=== PATIENT | male | born 1955 | race Caucasian/White ===

== ENCOUNTER 2018-06-28 09:47 | Outpatient (CLI) | payer OTHER, SELFPAY ==
[2018-06-28 10:56] LABS: BUN 26 mg/dL (7-18); CREATININE 0.94 mg/dL (0.70-1.30); Calcium 8.8 mg/dL (8.5-10.1); Chloride 105 mmol/L (98-107); Glucose 98 mg/dL (70-100); Potassium 3.8 mmol/L (3.5-5.1); Sodium 144 mmol/L (136-145)
== END 2018-06-28 10:07 ==
PROVIDERS: PCP Emergency Medicine; Visit Provider Emergency Medicine
DX: Z00.00 Encounter for general adult medical examination without abnormal findings (principal)
CPT/HCPCS: 36415; 80048

== ENCOUNTER 2019-12-22 13:14 | Outpatient (REF) | payer OTHER, SELFPAY ==
[2019-12-22 13:30] LABS: Anion Gap 9.6 mmol/L (3-11); BUN 22 mg/dL (7-18); CO2 27.4 mmol/L (21.0-32.0); CREATININE 1.02 mg/dL (0.70-1.30); Calcium 8.7 mg/dL (8.5-10.1); Chloride 105 mmol/L (98-107); Glucose 120 mg/dL (74-106); Potassium 3.5 mmol/L (3.5-5.1); Sodium 142 mmol/L (136-145)
[2019-12-25 09:54] LABS: PSA, Screening 5.1 ng/mL (0.0-4.5)
== END 2019-12-22 13:34 ==
LOC: LBN 13:14
PROVIDERS: PCP Emergency Medicine; Visit Provider Emergency Medicine
DX: I10 Essential (primary) hypertension (principal); Z12.5 Encounter for screening for malignant neoplasm of prostate
CPT/HCPCS: 80048; 84153

== ENCOUNTER → 2020-04-02 04:36 | Outpatient (CLI) | payer OTHER, SELFPAY ==
[2020-04-02 09:24] LABS: Hemoglobin A1C 5.3 % (<5.7)
== END ==
PROVIDERS: PCP Emergency Medicine; Visit Provider Emergency Medicine
DX: R73.09 Other abnormal glucose (principal); R97.20 Elevated prostate specific antigen [PSA]; R89.9 Unspecified abnormal finding in specimens from other organs, systems and tissues
CPT/HCPCS: 36415; 83036; 84153

== ENCOUNTER 2020-04-16 08:37 | Outpatient (CLI) | payer OTHER, SELFPAY ==
[2020-04-18 00:32] LABS: COVID-19 RT-PCR Result NEGATIVE (Negative)
== END 2020-04-16 08:57 ==
PROVIDERS: PCP Emergency Medicine; Visit Provider Emergency Medicine
DX: Z20.828 Contact with and (suspected) exposure to other viral communicable diseases (principal)
CPT/HCPCS: U0003

== ENCOUNTER 2021-01-16 18:29 | Outpatient (REF) | payer OTHER, SELFPAY ==
[2021-01-16 19:31] LABS: BUN 19 mg/dL (7-18); CREATININE 1.1 mg/dL (0.70-1.30); Calcium 8.8 mg/dL (8.5-10.1); Chloride 105 mmol/L (98-107); Glucose 94 mg/dL (74-106); Potassium 3.9 mmol/L (3.5-5.1); Sodium 141 mmol/L (136-145)
[2021-01-17 17:24] LABS: PSA, Diagnostic 5.1 ng/mL (0.0-4.5)
== END 2021-01-16 18:30 | disposition home or self-care (01) ==
LOC: LBN 18:29
PROVIDERS: PCP Emergency Medicine; Visit Provider Emergency Medicine
DX: I10 Essential (primary) hypertension (principal); R97.20 Elevated prostate specific antigen [PSA]
CPT/HCPCS: 80048; 84153

== ENCOUNTER 2021-05-16 01:50 | Outpatient (CLI) | payer OTHER, SELFPAY ==
[2021-05-16 17:55] LABS: PSA, Diagnostic 4.8 ng/mL (0.0-4.5)
== END 2021-05-16 01:51 | disposition home or self-care (01) ==
LOC: LBO 01:50
PROVIDERS: PCP Emergency Medicine; Visit Provider Emergency Medicine
DX: R97.20 Elevated prostate specific antigen [PSA] (principal)
CPT/HCPCS: 36415; 84153

== ENCOUNTER 2021-11-03 03:05 | Outpatient (CLI) | payer OTHER, SELFPAY ==
[2021-11-04 14:23] LABS: Free PSA/PSA Ratio 0.15 ratio
== END 2021-11-03 03:06 | disposition home or self-care (01) ==
LOC: LBO 03:05
PROVIDERS: PCP Family Medicine; Visit Provider Nurse Practitioner Gerontology
DX: R97.20 Elevated prostate specific antigen [PSA] (principal)
CPT/HCPCS: 36415; 84154

== ENCOUNTER 2022-05-11 02:47 | Outpatient (CLI) | payer OTHER, SELFPAY ==
[2022-05-11 08:35] LABS: Anion Gap 4.2 mmol/L (3-11); BUN 23 mg/dL (7-18); CO2 29.8 mmol/L (21.0-32.0); Calcium 8.4 mg/dL (8.5-10.1); Chloride 107 mmol/L (98-107); Estimated GFR 84.05 (mL/min/1.73m2); Glucose 122 mg/dL (74-106); Potassium 3.5 mmol/L (3.5-5.1); Sodium 141 mmol/L (136-145)
== END 2022-05-11 02:48 | disposition home or self-care (01) ==
PROVIDERS: PCP Family Medicine; Visit Provider Nurse Practitioner Gerontology
DX: I10 Essential (primary) hypertension (principal)
CPT/HCPCS: 36415; 80048

== ENCOUNTER 2022-05-18 11:36 | Outpatient (REF) | payer OTHER, SELFPAY ==
[2022-05-18 22:38] LABS: PSA, Screening 4.6 ng/mL (<=4.5)
== END 2022-05-18 11:37 | disposition home or self-care (01) ==
LOC: LBN 11:36
PROVIDERS: PCP Family Medicine; Visit Provider Nurse Practitioner Gerontology
DX: R97.20 Elevated prostate specific antigen [PSA] (principal)
CPT/HCPCS: 84153

== ENCOUNTER 2022-11-02 02:35 | Outpatient (CLI) | payer OTHER, SELFPAY ==
[2022-11-03 17:26] LABS: PSA, Screening 4.8 ng/mL (<=4.5)
== END 2022-11-02 02:36 | disposition home or self-care (01) ==
LOC: LBO 02:35
PROVIDERS: PCP Family Medicine; Visit Provider Nurse Practitioner Gerontology
DX: R97.20 Elevated prostate specific antigen [PSA] (principal); N40.0 Benign prostatic hyperplasia without lower urinary tract symptoms; Z12.5 Encounter for screening for malignant neoplasm of prostate
CPT/HCPCS: 36415; 84153

== ENCOUNTER 2023-08-26 05:21 | Outpatient (CLI) | payer OTHER, SELFPAY ==
[2023-08-26 15:59] LABS: Anion Gap 7.9 mmol/L (3-11); BUN 20 mg/dL (7-18); CO2 28.1 mmol/L (21.0-32.0); CREATININE 0.9 mg/dL (0.70-1.30); Calcium 8.4 mg/dL (8.5-10.1); Chloride 108 mmol/L (98-107); Estimated GFR 94.19 (mL/min/1.73m2); Glucose 104 mg/dL (74-106); Potassium 3.8 mmol/L (3.5-5.1); Sodium 144 mmol/L (136-145)
== END 2023-08-26 05:22 | disposition home or self-care (01) ==
LOC: LBO 05:22
PROVIDERS: PCP Family Medicine; Visit Provider Family Medicine
DX: I10 Essential (primary) hypertension (principal)
CPT/HCPCS: 36415; 80048

== ENCOUNTER 2024-02-09 10:01 | Outpatient (CLI) | payer OTHER, SELFPAY ==
[2024-02-09 12:40] LABS: Anion Gap 7.9 mmol/L (3-11); BUN 20 mg/dL (7-18); CO2 26.1 mmol/L (21.0-32.0); Calcium 8.9 mg/dL (8.5-10.1); Chloride 109 mmol/L (98-107); Estimated GFR 83.01 (mL/min/1.73m2); Glucose 104 mg/dL (74-106); Potassium 3.8 mmol/L (3.5-5.1); Sodium 143 mmol/L (136-145)
[2024-02-09 18:38] LABS: PSA, Screening 6.4 ng/mL (<=4.5)
[2024-02-09 19:28] LABS: Hepatitis C Ab w Rflx HCV PCR Negative (Negative)
== END 2024-02-09 10:02 | disposition home or self-care (01) ==
LOC: LOS 10:01
PROVIDERS: PCP Family Medicine; Visit Provider Family Medicine
DX: Z11.59 Encounter for screening for other viral diseases (principal); S60.459A Superficial foreign body of unspecified finger, initial encounter; Z12.5 Encounter for screening for malignant neoplasm of prostate; I10 Essential (primary) hypertension; Z23 Encounter for immunization; L72.3 Sebaceous cyst; F41.9 Anxiety disorder, unspecified; N40.0 Benign prostatic hyperplasia without lower urinary tract symptoms
CPT/HCPCS: 36415; 80048; 84153; 86803

== ENCOUNTER 2024-03-22 11:24 | Day surgery (SDC) | payer OTHER, SELFPAY ==
--- NOTE | 2024-03-22 11:43 | W.PM.DSUDISC ---
Date of service: 03/22/24 Discharge Plan Disposition Patient Disposition: Home Condition: Good Discharge Details Reason For Visit: LLF Foreign body excision Attending Provider: Rome Murillo Primary Care Provider: Chantel Carreon Home Meds and New Rx's Prescriptions: New acetaminophen 500 mg tablet 1,000 mg PO TID Qty: 90 0RF hydrocodone-acetaminophen 5-325 mg tablet 1 tab PO Q6H PRN (Reason: pain) Qty: 4 0RF ibuprofen 600 mg tablet 600 mg PO TID PRN (Reason: pain) Qty: 90 0RF Continued brimonidine 0.2 % drops 1 drp ophthalmic (eye) BID latanoprost 0.005 % drops 1 drp ophthalmic (eye) DAILY omeprazole 20 mg capsule,delayed release(DR/EC) 20 mg PO DAILY PRN (Reason: gerd) timolol maleate 0.5 % drops 1 drp ophthalmic (eye) BID brinzolamide [Azopt] 5 ML drops,suspension 1 drp Ophthalmic BID amlodipine 5 mg tablet 5 mg PO DAILY Qty: 90 3RF lisinopril 20 mg tablet 20 mg PO DAILY Qty: 90 3RF sildenafil [Viagra] 100 mg tablet 100 mg PO PRN MDD 100 mg Qty: 5 6RF Discharge Instructions Additional Instructions: Forgein Body Removal Discharge Instructions Activity: You may use the other fingers as tolerated but avoid trying to do too much too soon. You may resume light activities with the finger when the dressing is removed Dressing/Cast: You may take the dressing down in [address] a Band-Aid over the wound if desired. You may get the incision wet after 48 hours. Medications: - You should take Tylenol and Ibuprofen for baseline pain control. - You have Hydrocodone for breakthrough pain. - You may apply ice over the finger. Follow-up: 7-10 days Stand Alone Forms: Dolores Cleary ([facility]) Referrals: Rome Murillo MD [ [facility] STAFF PHYSICIAN] - 04/03/24 1:00 pm Activity:: Activity as Tolerated Remove Dressings/Wound Care:: 48 hours Shower/Bathe:: 48 hours Diet:: As Tolerated Discharge Orders Discharge Orders: Discharge Order (Routine); Ordered 03/22/24 Ordered By: Martín Chapin DS: Diagnosis Discharge Diagnosis (1) Foreign body of finger of left hand: Status: Acute
[2024-03-22 11:47] VITALS: BP 145/98; PULSE 80; RESP 16; TEMP 36.3; O2SAT 98
[2024-03-22] MEDS: Sodium Bicarbonate 50 MEQ/50 ML VIAL (12:36)
[2024-03-22] MEDS: Lidocaine 1% Pres-Free W/EPI 1/200,000 10 ML VIAL (12:36)
[2024-03-22 13:11] VITALS: BP 141/96; PULSE 76; RESP 16; TEMP 36.6; O2SAT 100
--- NOTE | 2024-03-22 15:04 | W.PM.OP ---
Operative Note Operative Note PRE-OP DIAGNOSIS: Subungual foreign body, left middle finger POST-OP DIAGNOSIS: same PROCEDURE: Excision of foreign body from left middle finger nailbed SURGEON: Rome Murillo ANESTHESIA TYPE: Local By Surgeon Refer to Anesthesia Record ESTIMATED BLOOD LOSS: 0 PATHOLOGY: none sent COMPLICATIONS: None Patient was transported to: same day Indications: Mic is a 68-year-old male who I saw in clinic for a painful mass about the left middle finger. 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 Findings: There was a solid cylindrical black object, approximately 4 mm in length which was identified within the sterile matrix of the left middle finger underlying the distal third of the nail. Procedure Description: Mic was greeted in the preoperative holding area. His identity was confirmed the correct site was identified and marked. The consent was reviewed the patient and signed. He was taken to the operating room, kept on the stretcher, with the left hand on an outstretched hand table. The mass was identified through the nail. The hand was then prepped with ChloraPrep. A timeout was performed for safe surgery. A local block of 0.2 Bupivacaine Was Then Administered around the Distal End of the Finger. Once This Provided Complete Anesthetic for the End of the Finger I Proceeded with Elevating the Nail Plate off of the Sterile Matrix. There Was Some Density to the Tissue but I Was Unable to Identify Any Loose Pieces at This Point. Therefore, I Utilized Scissor and Knife to Remove a Window of Nail in the Location of the Mass. With This Window Removed I Was Able to Palpate a Firm Edge Which Corresponded to This Black Dot Which Was Seen on the Skin and Could Be Seen Slightly Better with Traction Placed into Soft Tissues. This Was Dissected Gently with a Dental Pick and a Tenotomy Scissor so I Could Identify a Leading Edge. The Mass Was Then Removed with Fine Tweezers. This Was Embedded within the Sterile Matrix. It Was Removed in a Hole, Measuring Approximate 4 to 5 Mm in Length. There Was Saved the Patient. The Wound Was Then Irrigated. The Fingernail Was Dressed with Xeroform, 4 X 4, Conform Dressing. He Tolerated Procedure Well and Was Taken Back to the Day Surgery Area in Stable Condition. Date of Procedure: 03/22/24
== END 2024-03-22 13:41 | disposition home or self-care (01) ==
PROVIDERS: PCP Family Medicine; Visit Provider Student in an Organized Health Care Education/Training Program
PROC: (CPT 10121; principal; 2024-03-22 13:45)
DX: S60.453A Superficial foreign body of left middle finger, initial encounter (principal)
CPT/HCPCS: 10121; J2004

== ENCOUNTER 2024-04-12 04:16 | Outpatient (CLI) | payer OTHER, SELFPAY ==
[2024-04-12 19:47] LABS: PSA, Diagnostic 5.7 ng/mL (<=4.5)
== END 2024-04-12 04:17 | disposition home or self-care (01) ==
LOC: LBO 04:17
PROVIDERS: PCP Family Medicine; Visit Provider Nurse Practitioner Gerontology
DX: R97.20 Elevated prostate specific antigen [PSA] (principal)
CPT/HCPCS: 36415; 84153

== ENCOUNTER 2024-10-30 03:30 | Outpatient (CLI) | payer OTHER, SELFPAY ==
[2024-10-30 10:03] LABS: ALT 31 U/L (16-63); AST 18 U/L (15-37); Albumin 3.6 g/dL (3.4-5.0); Alkaline Phosphatase 74 U/L (46-116); Anion Gap 7.6 mmol/L (3-11); BUN 24 mg/dL (7-18); Bilirubin, Total 0.8 mg/dL (0.2-1.0); CO2 27.4 mmol/L (21.0-32.0); Calcium 8.5 mg/dL (8.5-10.1); Chloride 107 mmol/L (98-107); Estimated GFR 97.00 (mL/min/1.73m2); Glucose 100 mg/dL (74-106); Potassium 4.1 mmol/L (3.5-5.1); Sodium 142 mmol/L (136-145); Total Protein 7.1 g/dL (6.4-8.2)
[2024-10-30 18:06] LABS: PSA, Diagnostic 6.8 ng/mL (<=4.5)
== END 2024-10-30 03:31 | disposition home or self-care (01) ==
LOC: LBO 03:30
PROVIDERS: PCP Family Medicine; Visit Provider Nurse Practitioner Gerontology
DX: N40.0 Benign prostatic hyperplasia without lower urinary tract symptoms (principal); R97.20 Elevated prostate specific antigen [PSA]; Z00.00 Encounter for general adult medical examination without abnormal findings; I10 Essential (primary) hypertension
CPT/HCPCS: 36415; 80053; 84153

== ENCOUNTER 2025-03-01 01:36 | Outpatient (CLI) | payer OTHER, SELFPAY ==
[2025-03-01 17:50] LABS: PSA, Diagnostic 6.5 ng/mL (<=4.5)
== END 2025-03-01 01:37 | disposition home or self-care (01) ==
LOC: LBO 01:36
PROVIDERS: PCP Family Medicine; Visit Provider Nurse Practitioner Gerontology
DX: N40.0 Benign prostatic hyperplasia without lower urinary tract symptoms (principal); R97.20 Elevated prostate specific antigen [PSA]
CPT/HCPCS: 36415; 84153